=== PATIENT | male | born 1980 | race Caucasian/White ===

== ENCOUNTER 2017-08-10 06:07 | Emergency (ER) | payer OTHER ==
[~2017-08-10] VITALS: Ht 174 cm; Wt 70.6 kg
[2017-08-10 06:23] VITALS: Ht 174 cm; Wt 70.6 kg
[2017-08-10] MEDS ORDERED: KETOROLAC 15 MG INJ IV STA ×2 (07:12→10:29)
[2017-08-10] MEDS ORDERED: ONDANSETRON 4 MG INJ IV STA (07:12)
[2017-08-10] MEDS ORDERED: SOD CHLORIDE 0.9% 1,000 ML IV STA (07:12)
[2017-08-10 07:41] LABS: ADD UMIC YES; BASOPHIL # 0.1 10^3/ul (0.0-0.1); BASOPHILS % 0.3 % (0.0-2.0); EOSINOPHILS # 0.1 10^3/ul (0.0-0.5); EOSINOPHILS % 0.4 % (0.0-7.0); HEMATOCRIT 45.7 % (42.0-52.0); HEMOGLOBIN 15.8 g/dl (14.0-18.0); LYMPHOCYTES # 1.5 10^3/ul (0.8-2.9); LYMPHOCYTES % 7.8 % (15.0-51.0); MEAN CORPUSCULAR HEMOGLOBIN 28.7 pg (29.0-33.0); MEAN CORPUSCULAR HGB CONC 34.6 g/dl (32.0-37.0); MEAN CORPUSCULAR VOLUME 83.1 fl (82.0-101.0); MEAN PLATELET VOLUME 10.2 fl (7.4-10.4); MONOCYTE # 1.1 10^3/ul (0.3-0.9); MONOCYTES % 5.7 % (0.0-11.0); NEUTROPHIL # 16.1 10^3/ul (1.6-7.5); NEUTROPHILS % 85.2 % (39.0-77.0); PLATELET COUNT 271 10^3/UL (140-415); RED CELL DISTRIBUTION WIDTH 13.2 % (11.5-14.5); UR ASCORBIC ACID NEGATIVE (NEGATIVE); UR BILIRUBIN (Dip) NEGATIVE (NEGATIVE); UR BLOOD (Dip) 3+ mg/dL (NEGATIVE); UR CLARITY CLEAR (CLEAR); UR COLOR YELLOW (YELLOW); UR GLUCOSE (Dip) NEGATIVE (NEGATIVE); UR KETONES (Dip) TRACE mg/dL (NEGATIVE); UR LEUKOCYTE ESTERASE (Dip) NEGATIVE Leu/ul (NEGATIVE); UR MUCUS FEW /HPF (NONE SEEN); UR NITRITE (Dip) NEGATIVE (NEGATIVE); UR RBC 16 /HPF (0-5); UR SPECIFIC GRAVITY (Dip) 1.012 (1.003-1.030); UR TOTAL PROTEIN (Dip) NEGATIVE (NEGATIVE); UR UROBILINOGEN (Dip) NEGATIVE (NEGATIVE); WHITE BLOOD COUNT 18.9 10^3/ul (4.8-10.8)
[2017-08-10 07:58] LABS: ALBUMIN 4.6 g/dl (3.3-4.9); ALBUMIN/GLOBULIN RATIO 1.35; BILIRUBIN,INDIRECT 0.4 mg/dl (0-1.1); BILIRUBIN,TOTAL 0.4 mg/dl (0.2-1.3); CALCIUM 10.1 mg/dl (8.4-10.2); POTASSIUM 3.9 mmol/L (3.5-5.1)
--- NOTE | 2017-08-10 08:02 | ERD ---
ER Documentation Chief Complaint Chief Complaint rt quad "squeezing" abd pain radiating to right back HPI This is a 37-year-old male with a past medical history of kidney stones who is presenting with acute onset sharp crampy squeezing right-sided flank pain radiating into the right abdomen and groin that started around 430 this morning while he was at work. The patient does endorse nausea with an episode of nonbilious nonbloody vomiting this morning. Prior to the onset of symptoms, the patient felt quite well. The patient denies feeling sick recently. The patient denies fever or chills. The patient has had no headache or vision changes. The patient does not endorse neck or back pain. The patient denies lightheadedness or dizziness. The patient has had no chest pain or shortness of breath or trouble breathing. The patient denies nausea or vomiting. The patient denies abdominal pain or changes to bowel movements or urination. The patient has had no focal deficits. The patient has had no weakness or numbness or tingling to the face or extremities. ROS All systems reviewed and are negative except as per history of present illness. Medications Home Meds Active Scripts Tamsulosin Hcl* (Flomax*) 0.4 Mg Cap.er.24h, 0.4 MG PO BID, #30 CAP Prov:MONA KERN MD 08/10/17 Allergies Allergies: Coded Allergies: No Known Allergy (Unverified , 08/10/17) PMhx/Soc History of Surgery: No Hx Neurological Disorder: No Hx Respiratory Disorders: No Hx Cardiac Disorders: Yes (htn) Hx Psychiatric Problems: Yes (Anxiety) Hx Miscellaneous Medical Probl: Yes (Kidney stones) Hx Alcohol Use: No Hx Substance Use: No Hx Tobacco Use: No Smoking Status: Never smoker FmHx Family History: other (Colon Ca (Father @ 40yo)), No coronary disease, No diabetes Physical Exam Vitals Vital Signs Date Time Temp Pulse Resp B/P Pulse Ox O2 Delivery O2 Flow Rate FiO2 08/10/17 11:07 98.5 78 20 139/89 98 Room Air 08/10/17 06:23 98.0 87 18 181/94 98 Physical Exam Const: No apparent distress, well-developed, well-nourished Head: Atraumatic Eyes: Normal Conjunctiva. Extraocular movements intact. ENT: Normal External Ears, Nose and Mouth. Neck: Full range of motion. No meningismus. Resp: Clear to auscultation bilaterally Cardio: Regular rate and rhythm, no murmurs Abd: Soft, non distended, right-sided abdominal discomfort, normal bowel sounds Skin: No petechiae or rashes Back: No midline, right-sided CVA tenderness Ext: No cyanosis, or edema Neur: Awake and alert, oriented 4. Cranial nerves intact. No facial droop. Normal strength and sensation in all extremities. Coordination with finger to nose normal. Psych: Normal Mood and Affect Result Diagram: 08/10/1715 08/10/1715 Results 24 hrs Laboratory Tests Test 08/10/17 07:15 White Blood Count 18.910^3/ul Red Blood Count 5.5010^6/ul Hemoglobin 15.8g/dl Hematocrit 45.7% Mean Corpuscular Volume 83.1fl Mean Corpuscular Hemoglobin 28.7pg Mean Corpuscular Hemoglobin Concent 34.6g/dl Red Cell Distribution Width 13.2% Platelet Count 21513^3/UL Mean Platelet Volume 10.2fl Neutrophils % 85.2% Lymphocytes % 7.8% Monocytes % 5.7% Eosinophils % 0.4% Basophils % 0.3% Nucleated Red Blood Cells % 0.0/100WBC Neutrophils # 16.110^3/ul Lymphocytes # 1.510^3/ul Monocytes # 1.110^3/ul Eosinophils # 0.110^3/ul Basophils # 0.110^3/ul Nucleated Red Blood Cells # 0.010^3/ul Urine Color YELLOW Urine Clarity CLEAR Urine pH 7.0 Urine Specific [place] 1.012 Urine Ketones TRACEmg/dL Urine Nitrite NEGATIVEmg/dL Urine Bilirubin NEGATIVEmg/dL Urine Urobilinogen NEGATIVEmg/dL Urine Leukocyte Esterase NEGATIVELeu/ul Urine Microscopic RBC 16/HPF Urine Microscopic WBC 1/HPF Urine Mucus FEW/HPF Urine Hemoglobin 3+mg/dL Urine Glucose NEGATIVEmg/dL Urine Total Protein NEGATIVEmg/dl Sodium Level 143mmol/L Potassium Level 3.9mmol/L Chloride Level 108mmol/L Carbon Dioxide Level 22mmol/L Anion Gap 17 Blood Urea Nitrogen 16mg/dl Creatinine 1.00mg/dl Glucose Level 104mg/dl Calcium Level 10.1mg/dl Total Bilirubin 0.4mg/dl Direct Bilirubin 0.00mg/dl Indirect Bilirubin 0.4mg/dl Aspartate Amino Transf (AST/SGOT) 27IU/L Alanine Aminotransferase (ALT/SGPT) 36IU/L Alkaline Phosphatase 56IU/L Total Protein 8.0g/dl Albumin 4.6g/dl Globulin 3.40g/dl Albumin/Globulin Ratio 1.35 Lipase 510U/L Current Medications Medications (Trade) Dose Ordered Sig/Mery Route PRN Reason Start Time Stop Time Status Last Admin Dose Admin Sodium Chloride (NS) 1,000 ml @ 1,000 mls/hr Q1H STAT IV 08/10/17 07:12 08/10/17 08:11 DC 08/10/17 07:33 Ondansetron HCl (Zofran Inj) 4 mg ONCE STAT IV 08/10/17 07:12 08/10/17 07:14 DC 08/10/17 07:34 Ketorolac Tromethamine (Toradol) 15 mg ONCE STAT IV 08/10/17 07:12 08/10/17 07:14 DC 08/10/17 07:35 Ketorolac Tromethamine (Toradol) 15 mg ONCE STAT IV 08/10/17 10:29 08/10/17 10:31 DC 08/10/17 11:03 Procedures/MDM MDM The patient's presentation warrants further investigation. Based on his history , I have high suspicion for a kidney stone. The patient will be treated with IV fluids, Toradol and Zofran. Blood work and urine testing will be obtained. LABS The patient's blood work was obtained and reviewed. The patient's CBC shows leukocytosis with left shift. The patient is afebrile and does not appear systemically ill. This may be reactive, as there is no other evidence to support a systemic infection. The patient is not anemic today. The patient's platelet count is unremarkable. The patient's CMP shows no signs of metabolic or electrolyte emergency. The patient has normal renal and hepatic function testing. His lipase is not three times normal and his pain is on the right side. Urinalysis does show hematuria, which does correlate with a kidney stone. There are no nitrites or leuk esterase or bacteria and only 1 wbc. I have low suspicion for urinary tract infection. IMAGING Abd US FINDINGS: The liver demonstrates slightly increased echogenicity. The liver is normal in size and no focal solid lesions are seen. The portal vein is patent with normal direction of flow. No intrahepatic biliary dilatation is seen. The liver measures 13.1 cm in length. Multiple calcified gallstones are identified within the gallbladder. There is no pericholecystic fluid or gallbladder wall thickening. The common bile duct measures 8 mm in maximal dimension. The visualized portions of the pancreas are unremarkable. The tail of the pancreas is not seen. The spleen is normal in size. The spleen measures 9.2 cm in length. No free fluid is identified. The kidneys are normal in size, and demonstrate normal cortical echogenicity and cortical thickness. The right kidney measures 11.3 cm. The left kidney measures 10.4 cm. There is no evidence of hydronephrosis. There is a 6 mm stone in the right kidney. The proximal aorta measures 1.7 cm in transverse dimension. IMPRESSION: Cholelithiasis. No evidence of gallbladder wall thickening or pericholecystic fluid. Mildly dilated CBD. Right nephrolithiasis. No evidence of hydronephrosis. Electronically viewed and signed by .Jerome Pereira MD, on 08/10/2017 09: 19 TREATMENT/DISPOSITION At this time I continue to have high suspicion for nephrolithiasis. The patient' s pain was resolved with toradol, zofran and IV fluids. There is blood in the patient's urine and nephrolithiasis on ultrasound. The patient does not have evidence of cholecystitis on ultrasound. There is a possibility of choledocholithiasis given the mildly elevated lipase, mildly dilated common bile duct. The patient's ALT is unremarkable. This is often elevated in the setting of gallstone pancreatitis, so I have decreased suspicion for this. This may be further worked up as an outpatient if his symptoms return. The patient does have an elevated white count, but he is afebrile and does not appear systemically ill. I do believe this to be reactive, associated with his pain, nausea and vomiting this morning. At this time, I feel that the patient stable for discharge. He will need follow -up with his primary care physician in 2-3 days. He will be given strict precautions with which to return to the emergency department. The patient was sent home with a prescription for Flomax. He was instructed to utilize Tylenol and/or ibuprofen as needed for discomfort. He is instructed to follow-up with his primary care physician. His primary care physician may also coordinate a urology appointment if needed. The patient's blood pressure was elevated at greater than 120/80 while in the emergency department. The patient was otherwise stable with no evidence of hypertensive urgency or emergency. The patient will require reevaluation of his blood pressure in 2-3 days, but this may be completed by a primary care physician as an outpatient. He does not require admission for blood pressure control. Departure Diagnosis: Primary Impression: Nephrolithiasis Additional Impressions: Leukocytosis Leukocytosis type: lymphocytosis Qualified Code: D72.820 - Lymphocytosis Nausea & vomiting Vomiting type: unspecified Vomiting Intractability: non-intractable Qualified Code: R11.2 - Non-intractable vomiting with nausea, unspecified vomiting type Cholelithiasis Cholelithiasis location: gallbladder and bile duct Cholecystitis presence: without cholecystitis Biliary obstruction: without biliary obstruction Qualified Code: K80.70 - Calculus of gallbladder and bile duct without cholecystitis or obstruction Elevated lipase Condition: Stable MONA KERN MD Aug 10, 2017 07:59
--- NOTE | 2017-08-10 09:19 | RADRPT ---
PROCEDURE: US Abdomen and retroperitoneal complete. CLINICAL INDICATION: abdominal pain TECHNIQUE: Multiple real-time images were acquired of the patient's abdomen and retroperitoneum ut ilizing a high resolution transducer. COMPARISON: None FINDINGS: The liver demonstrates slightly increased echogenicity. The liver is normal in size and no focal so lid lesions are seen. The portal vein is patent with normal direction of flow. No intrahepatic mariann iary dilatation is seen. The liver measures 13.1 cm in length. Multiple calcified gallstones are identified within the gallbladder. There is no pericholecystic fl uid or gallbladder wall thickening. The common bile duct measures 8 mm in maximal dimension. The visualized portions of the pancreas are unremarkable. The tail of the pancreas is not seen. The spleen is normal in size. The spleen measures 9.2 cm in length. No free fluid is identified. The kidneys are normal in size, and demonstrate normal cortical echogenicity and cortical thickness. The right kidney measures 11.3 cm. The left kidney measures 10.4 cm. There is no evidence of hyd ronephrosis. There is a 6 mm stone in the right kidney. The proximal aorta measures 1.7 cm in transverse dimension. RPTAT: AA IMPRESSION: Cholelithiasis. No evidence of gallbladder wall thickening or pericholecystic fluid. Mildly dilated CBD. Right nephrolithiasis. No evidence of hydronephrosis. .Jerome Pereira MD, MD Date Time Electronically viewed and signed by .Jerome Pereira MD, MD on 08/10/2017 09:19 .S/
[2017-08-10] MEDS ORDERED: TAMS-14 PO (10:33)
[2017-08-10 11:07] VITALS: BP 139/89; PULSE 78; RESP 20; TEMP 98.5
== END 2017-08-10 11:15 | disposition home or self-care (01) ==
LOC: E/R 06:07
DX: N20.0 Calculus of kidney (principal); D72.820 Lymphocytosis (symptomatic); K80.70 Calculus of gallbladder and bile duct without cholecystitis without obstruction; R74.8 Abnormal levels of other serum enzymes; I10 Essential (primary) hypertension
CPT/HCPCS: 36415; 76700; 80053; 81001; 83690; 85025; 87086; 96374; 96375; 96376; 99285; J1885; J2405; J7030

== ENCOUNTER → 2018-08-16 | Outpatient (CLI) | END | disposition home or self-care (01) ==